=== PATIENT | male | born 2000 | race Caucasian/White ===

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

== ENCOUNTER 2022-10-03 16:44 | Emergency (ER) | payer MEDICAID ==
[~2022-10-03] VITALS: Ht 167.6 cm; Wt 66.0 kg
[2022-10-03 16:55] VITALS: BP 137/68
== END 2022-10-03 19:41 | disposition home or self-care (01) ==
LOC: ER 17:58
DX: S90.32XA Contusion of left foot, initial encounter (principal); W21.31XA Struck by shoe cleats, initial encounter; Y93.89 Activity, other specified; Y92.89 Other specified places as the place of occurrence of the external cause; Y99.8 Other external cause status
CPT/HCPCS: 73630; 99283